=== PATIENT | female | born 1965 | race Caucasian/White ===

== ENCOUNTER 2020-05-13 19:33 | Emergency (ER) | payer OTHER ==
[~2020-05-13] VITALS: Ht 167.6 cm; Wt 99.8 kg
[2020-05-13] MEDS ORDERED: FLEXERIL PO (21:33)
[2020-05-13] MEDS ORDERED: HYDROCODON-ACE1 EAC8 PO (21:33)
[2020-05-13 21:49] VITALS: BP 155/68
== END 2020-05-13 21:50 | disposition home or self-care (01) ==
LOC: M.ERS 19:33
DX: S32.030A Wedge compression fracture of third lumbar vertebra, initial encounter for closed fracture (principal); Z90.710 Acquired absence of both cervix and uterus; Z98.890 Other specified postprocedural states; Z88.2 Allergy status to sulfonamides; W01.0XXA Fall on same level from slipping, tripping and stumbling without subsequent striking against object, initial encounter; Y93.89 Activity, other specified; Y92.89 Other specified places as the place of occurrence of the external cause; Y99.9 Unspecified external cause status